=== PATIENT | female | born 1975 | race Two or more races ===

== ENCOUNTER 2024-11-01 06:58 | Emergency (ER) | payer MEDICAID, SELFPAY ==
[2024-11-01 07:19] VITALS: BP 144/87; PULSE 67; RESP 18; TEMP 36.5; O2SAT 97
--- NOTE | 2024-11-01 07:27 | XR_ITS ---
Examination: CT abdomen and pelvis without contrast. Coronal 3-D reconstructions. Sagittal 2-D reconstructions. Date and time of exam:November 01, 2024, 0917 hrs. Comparison May 27, 2020. Indications: History kidney stones, onset right-sided flank pain today. CTDI: vol (mGy): 9.05 DLP: (mGycm): 408. Technique: Axial images of the abdomen have been obtained, 3 mm slice thickness Intravenous contrast material has not been administered. Low dose protocols were performed. One or more of the following dose reduction techniques were used; automated exposure control, adjustment of the mA and/or KV according to patient size, use of iterative reconstruction technique. Findings: Diffuse fatty infiltration throughout the liver. Absent gallbladder. Spleen not enlarged. No pancreatic or adrenal mass. 8mm upper pole right renal calculus. 9 mm midpole left renal calculus. No hydronephrosis or ureteral calculi. Normal appendix. No bowel obstruction. Partially retroverted uterus. No bladder mass or bladder calculi. Mild osteopenia. Impression: Bilateral renal calculi. No hydronephrosis or ureteral calculi. Normal appendix. No bladder mass or bladder calculi.
[2024-11-01 07:55] LABS: Basophils # (Auto) 0.0 Thou/mm3 (0.0-0.2); Basophils % (Auto) 1 % (0-2.5); Eosinophils # (Auto) 0.4 Thou/mm3 (0.0-0.5); Eosinophils % (Auto) 6 % (0-10); Hematocrit 38.3 % (36.0-46.0); Hemoglobin 12.2 g/dL (12.0-16.0); Immature Granulocytes Auto 0.01 Thou/mm3 (0.00-0.00); Lymphocytes # (Auto) 2.4 Thou/mm3 (1.0-4.8); Lymphocytes % (Auto) 33 % (10-50); Mean Corpuscular HGB Conc 31.9 g/dl (31.0-37.0); Mean Corpuscular Hemoglobin 27.9 pg (25.0-35.0); Mean Corpuscular Volume 87 fL (80-100); Monocytes # (Auto) 0.6 Thou/mm3 (0.0-0.8); Monocytes % (Auto) 8 % (0-12); Neutrophils # (Auto) 3.8 Thou/mm3 (1.8-7.7); Neutrophils % (Auto) 52 % (37-80); Nucleated Red Blood Cell # 0.00 Thou/mm3 (0.00-0.00); Nucleated Red Blood Cell % 0 /100 WBC (0); Platelet Count 309 Thou/mm3 (140-440); RDW Standard Deviation 51.7 fL (36.4-46.3); Red Blood Count 4.38 Miln/mm3 (4.00-5.20); White Blood Count 7.3 Thou/mm3 (3.6-11.0)
[2024-11-01 08:11] LABS: Alanine Aminotransferase 28 U/L (10-49); Albumin, Serum 4.6 gm/dL (3.5-5.0); Albumin/Globulin Ratio 1.6 (1.2-2.2); Alkaline Phosphatase 108 U/L (46-116); Anion Gap 11 (7-16); Aspartate Amino Transferase 24 U/L (0-34); BUN/Creatinine Ratio 17 Ratio (12-20); Bilirubin,Total 0.4 mg/dL (0.3-1.2); Blood Urea Nitrogen 10 mg/dL (9-23); Calcium 10.1 mg/dL (8.3-10.6); Calcium (Corrected) 10.1 mg/dL (8.5-10.1); Carbon Dioxide 24.4 mMol/L (20.0-31.0); Chloride 107 mMol/L (98-107); Creatinine (Component) 0.6 mg/dL (0.6-1.3); Globulin 2.8 gm/dL (2.3-3.5); Glucose 106 mg/dL (74-106); Lipase 42 U/L (12-53); Osmolality,Calculated 282 (275-295); Potassium 3.8 mMol/L (3.4-5.1); Sodium 142 mMol/L (136-145); Total Protein 7.4 gm/dL (5.7-8.2); eGFR > 60 See Note
[2024-11-01 08:26] LABS: Collection Type, Urine Clean Catch
[2024-11-01 08:37] LABS: Bilirubin,Urine Negative (Negative); Blood,Urine Negative (Negative); Clarity,Urine Clear (Clear/Hazy); Color,Urine Colorless (Lt Yel-Yel); Glucose, Urine Negative (Negative); Ketones,Urine Negative (Negative); Leukocyte Esterase,Urine Negative (Negative); Nitrite,Urine Negative (Negative); PH,Urine 6.5 (5.0-7.0); Protein,Urine Negative (Neg - Trace); RBC,Urine < 1 /hpf (0-3); Specific Gravity,Urine 1.005 (1.001-1.035); Squamous Epithelial Cell,Urine 1 /hpf (0-5); Urobilinogen,Urine Negative mg/dL (0.0-1.0); WBC,Urine 1 /hpf (0-5)
[2024-11-01 08:55] LABS: HCG Qualitative,Urine Negative
--- NOTE | 2024-11-01 08:56 | PD.EDADULT ---
ED General RME/HPI General Chief complaint: General Adult/Misc Complain Stated complaint: PAIN TO BACK and HIPS Time Seen by Provider: 11/01/24 07:13 Arrival date/time: 11/01/24 06:58 Limitations: no limitations RME / HPI RME / HPI narrative: 49-year-old female with history of kidney stones complaining of low back pain that radiates to the front of her abdomen and urinary pressure x 2 weeks, states some days urinates normal other days has to push to go, but no burning or pain. Does have history of kidney stones requiring lithotripsy to left side 5 years ago. No fever at this time. Has not been able to see PCP for urinary issues. Related Data Home Medications ?Medication ?Instructions ?Recorded ?Confirmed cyclobenzaprine 10 mg tablet 10 mg PO HS PRN Spasms 05/27/20 05/27/20 hydrocodone 5 mg-acetaminophen 325 1 tab PO TID PRN Pain 05/27/20 05/27/20 mg tablet naproxen 500 mg tablet 500 mg PO BID PRN Pain 05/27/20 05/27/20 sulfamethoxazole 400 1 tab PO BID 05/27/20 05/27/20 mg-trimethoprim 80 mg tablet tamsulosin 0.4 mg capsule 0.8 mg PO QDAY 05/27/20 05/27/20 Previous Rx's ?Medication ?Instructions ?Recorded ibuprofen 600 mg tablet 600 mg PO Q6H PRN pain #30 tabs 05/27/20 acetaminophen 500 mg tablet 500 mg PO Q4H PRN pain #30 tabs 12/07/23 (Tylenol Extra Strength) meloxicam 15 mg tablet 15 mg PO QDAY #30 tabs 12/07/23 IBU 800 mg tablet (ibuprofen) 800 mg PO Q6H PRN pain #30 tabs 11/01/24 hydrocodone 5 mg-acetaminophen 325 1 tab PO BID PRN pain 7 days #14 11/01/24 mg tablet tabs ondansetron 4 mg disintegrating 4 mg PO Q8H PRN nausea and 11/01/24 tablet vomiting #10 tabs tamsulosin 0.4 mg capsule (Flomax) 0.4 mg PO QDAY 1 month #30 caps 11/01/24 Allergies Allergy/AdvReac Type Severity Reaction Status Date / Time No Known Allergies Allergy Verified 11/01/24 07:07 Review of Systems Review of Systems Systems Reviewed: All systems reviewed, normal except as documented Gastrointestinal Gastrointestinal: Reports as per [facility] Genitourinary Genitourinary: Reports as per [facility] Musculoskeletal Musculoskeletal: Reports as per [facility] ED Exam General Limitations: Present no limitations General appearance: Present alert and in no apparent distress Eye Eye exam: Present normal appearance, PERRL and EOMI Respiratory Respiratory exam: Present normal lung sounds bilaterally Cardiovascular Cardiovascular exam: Present regular rate, normal rhythm and normal heart sounds Abdominal Exam Abdominal exam: Present soft, normal bowel sounds and other (bilateral cvat ) Extremities Exam Extremities exam: Present normal inspection and full ROM Back Exam Back exam: Present normal inspection, full ROM, CVA tenderness (R), CVA tenderness (L) and paraspinal tenderness (lumbar ) Skin Skin exam: Present warm, dry, intact and normal color Course Quality Measures none Orders Category Date Time Status CT abdomen pelvis wo con Stat Exams 11/01/24 07:27 Completed CBC Stat Lab 11/01/24 07:40 Completed CMP [Comprehensive Metabolic Panel] Stat Lab 11/01/24 07:40 Completed HCG Qualitative,Urine Stat Lab 11/01/24 07:55 Completed Lipase Stat Lab 11/01/24 07:40 Completed UA [Urinalysis] Stat Lab 11/01/24 07:55 Completed HYDROcodone*/APAP 5/325 [[place] 5/325] Med 11/01/24 10:39 Discontinued 1 tab PO X1 ONE Ketorolac Inj [Toradol Inj] Med 11/01/24 10:39 Discontinued 30 mg IM X1 ONE Vital Signs Vital signs: Vital Signs Temperature 97.7 F 11/01/24 07:19 Pulse Rate 67 11/01/24 07:19 Respiratory Rate 18 11/01/24 07:19 Blood Pressure 144/87 H 11/01/24 07:19 Pulse Oximetry (%) 97 11/01/24 07:19 Oxygen Delivery Method Room Air 11/01/24 07:19 Discharge Plan Plan Patient Disposition: HOME (Self Care) Discharge Disposition comment: f/u with pcp in 2-3days Prescriptions/Referrals Prescriptions/Med Rec: New hydrocodone-acetaminophen 5-325 mg tablet 1 tab PO BID MDD 2 PRN (Reason: pain) 7 Days Qty: 14 0RF tamsulosin [Flomax] 0.4 mg capsule 0.4 mg PO QDAY 30 Days Qty: 30 0RF ondansetron 4 mg tablet,disintegrating 4 mg PO Q8H PRN (Reason: nausea and vomiting) Qty: 10 0RF ibuprofen [IBU] 800 mg tablet 800 mg PO Q6H PRN (Reason: pain) Qty: 30 0RF No Action cyclobenzaprine 10 mg Tablet 10 mg PO HS PRN (Reason: Spasms) sulfamethoxazole-trimethoprim 400-80 mg Tablet 1 tab PO BID hydrocodone-acetaminophen 5-325 mg Tablet 1 tab PO TID PRN (Reason: Pain) tamsulosin 0.4 mg Capsule 0.8 mg PO QDAY naproxen 500 mg Tablet 500 mg PO BID PRN (Reason: Pain) ibuprofen 600 mg tablet 600 mg PO Q6H PRN (Reason: pain) Qty: 30 0RF meloxicam 15 mg tablet 15 mg PO QDAY Qty: 30 0RF acetaminophen [Tylenol Extra Strength] 500 mg tablet 500 mg PO Q4H PRN (Reason: pain) Qty: 30 0RF Referrals: Salas Caro MD [Primary Care Provider] - In 1 week Problem List Clinical Impression: Abdominal pain, Renal calculus, bilateral Patient/Caregiver Discharge Instructions Education Materials: ED Kidney Stone w/ Colic Print Language: Nepali Stand Alone Forms: Iveth Award Info., Patient Portal Info Letter PA/CLINICAL EDUCATION ASSISTANT Supervising Physician PA/CLINICAL EDUCATION ASSISTANT Supervising Physician: Dr. Carter [facility] Narrative [facility] hospital course: Patient remained stable throughout stay initially declined pain medication but when she found out she had bilateral kidney stones agreed to take medication. Discussed findings advised follow-up with PCP for referral to urology Clinical Information Provided by patient and spouse Medical Records Reviewed [facility] Meds/Rx Considered, not Ordered Describe details: Antibiotics were considered however unlikely to have infected stone at this time Labs/Rad/Tests considered, not Ordered Describe details: All imaging considered was ordered Chronic Illness/Social Conditions Add or document further as needed: History of kidney stones which can cause recurrent stones Imaging Provider imaging interpretation(s): Bilateral kidney stones no hydronephrosis. Normal CBC normal CMP UA without UTI Medication Administration(s) Medication Administration History Discontinued Medications Hydrocodone Bitart/Acetaminophen (Hydrocodone/Apap 5/325 Tablet) 1 tab PO X1 ONE Stop: 11/01/24 10:40 Last Admin: 11/01/24 10:57 Dose: Not Given Documented By: BONNY Non-Admin Reason: Patient Refused Ketorolac Tromethamine (Ketorolac Inj 60 Mg/2 Ml Vial) 30 mg IM X1 ONE Stop: 11/01/24 10:40 Last Admin: 11/01/24 10:57 Dose: 30 mg Documented By: BONNY see above Diagnosis Differential dx and/or dx ruled out: Pyelo, UTI, kidney stones, urinary retention, infected stone. Most likely dx, and/or detailed dx discussion: Bilateral stones Dispositon Disposition: Discharge Home
[2024-11-01] MEDS: KETOROLAC INJ 60 MG/2 ML VIAL 30 MG IM (10:57)
--- NOTE | 2024-11-04 09:21 | PC.NURSE ---
PT REFUSED NORCO 5, MEDICATION WAS RETURNED IN PYXIS TO WRONG PATIENT.
== END 2024-11-01 11:03 | disposition home or self-care (01) ==
PROVIDERS: Emergency Provider Physician Assistant; PCP Family Medicine
DX: N20.0 Calculus of kidney (principal)
CPT/HCPCS: 36415; 74176; 80053; 81001; 81025; 83690; 85025; 96372; 99283; J1885